=== PATIENT | male | born 1970 | race Caucasian/White ===

== ENCOUNTER 2018-06-02 11:37 | Emergency (ER) | payer OTHER ==
[~2018-06-02] VITALS: Ht 170.2 cm; Wt 85.3 kg
[2018-06-02 11:42] VITALS: Ht 170.2 cm; Wt 85.3 kg
[2018-06-02 12:04] LABS: BASOPHIL % 0.7 % (0-2); PLATELET COUNT 134 x10^3mcL (130-400); RED CELL DISTRIBUTION WIDTH 14.4 % (11.5-14.5)
[2018-06-02 12:27] LABS: CALCIUM 8.4 mg/dL (8.5-10.1); CARBON DIOXIDE 26.5 mmol/L (21-32); CHLORIDE SERUM 106 mmol/L (98-107); CREATININE SERUM 0.7 mg/dL (0.7-1.3); GFR1 > 60 mL/min; GLUCOSE SERUM 133 mg/dL (74-106); POTASSIUM SERUM 3.4 mmol/L (3.5-5.1); SODIUM SERUM 140 mmol/L (136-145)
[2018-06-02 12:32] LABS: ALKALINE PHOSPHATASE 66 U/L (46-116); ALT/SGPT 59 U/L (16-63); AST/SGOT 83 U/L (15-37); BILIRUBIN TOTAL 0.55 mg/dL (0.20-1.00); LIPASE 198 IU/L (73-393); TOTAL PROTEIN, SERUM 7.5 g/dL (6.4-8.2)
[2018-06-02 12:33] LABS: ALBUMIN 3.3 g/dL (3.4-5.0)
[2018-06-02 14:19] VITALS: BP 127/84
== END 2018-06-02 14:19 | disposition home or self-care (01) ==
LOC: ED 11:37
PROVIDERS: Emergency Medicine
DX: R53.1 Weakness (principal); F10.10 Alcohol abuse, uncomplicated; E87.6 Hypokalemia; R11.2 Nausea with vomiting, unspecified; R19.7 Diarrhea, unspecified
CPT/HCPCS: J2405; J3411; J3490; J7030

== ENCOUNTER 2019-07-12 21:12 | Emergency (ER) | payer OTHER ==
[~2019-07-12] VITALS: Ht 182.9 cm; Wt 79.8 kg
[2019-07-12 21:26] VITALS: Ht 182.9 cm; Wt 79.8 kg
[2019-07-13 02:27] VITALS: BP 120/75
== END 2019-07-13 02:27 | disposition home or self-care (01) ==
LOC: ED 21:12
DX: F10.129 Alcohol abuse with intoxication, unspecified (principal); F17.210 Nicotine dependence, cigarettes, uncomplicated
CPT/HCPCS: J7030

== ENCOUNTER 2020-01-01 10:04 | Emergency (ER) | payer OTHER ==
[~2020-01-01] VITALS: Ht 172.7 cm; Wt 65.8 kg
[2020-01-01 10:19] VITALS: Ht 172.7 cm; Wt 65.8 kg
[2020-01-01 11:01] LABS: microscopic required? NO
[2020-01-01 11:35] LABS: BASOPHIL % 0.9 % (0-2); PLATELET COUNT 138 x10^3mcL (130-400)
[2020-01-01 11:36] LABS: RED CELL DISTRIBUTION WIDTH 15.2 % (11.5-14.5)
[2020-01-01 11:44] LABS: CALCIUM 8.6 mg/dL (8.5-10.1); CARBON DIOXIDE 27.9 mmol/L (21-32); CHLORIDE SERUM 112 mmol/L (98-107); CREATININE SERUM 0.7 mg/dL (0.7-1.3); GFR1 > 60 mL/min; GLUCOSE SERUM 112 mg/dL (74-106); POTASSIUM SERUM 3.5 mmol/L (3.5-5.1); SODIUM SERUM 148 mmol/L (136-145)
[2020-01-01 11:55] LABS: ALKALINE PHOSPHATASE 60 U/L (46-116); ALT/SGPT 92 U/L (16-63); AST/SGOT 102 U/L (15-37); BILIRUBIN TOTAL 0.28 mg/dL (0.20-1.00); HDL CHOLESTEROL 55 mg/dL (40-60); LIPASE 384 IU/L (73-393); MAGNESIUM 2.2 mg/dL (1.8-2.4); T4(THYROXINE) 6.5 ug/dL (4.7-13.3); TOTAL PROTEIN, SERUM 7.6 g/dL (6.4-8.2)
[2020-01-01 12:00] LABS: UA SPECIFIC GRAVITY <=1.005 (1.005-1.035); urine erythrocyte NEGATIVE (NEGATIVE)
[2020-01-01 12:03] LABS: ALBUMIN 3.3 g/dL (3.4-5.0); CHOLESTEROL 218 mg/dL (<200)
[2020-01-01 12:06] LABS: AMPHETAMINE QUAL UR NONE DETECTED (See below)
[2020-01-01 16:52] VITALS: BP 109/75
== END 2020-01-01 16:52 | disposition home or self-care (01) ==
LOC: ED 10:04
PROVIDERS: Emergency Medicine
DX: G93.41 Metabolic encephalopathy (principal); F10.129 Alcohol abuse with intoxication, unspecified; R74.0 Nonspecific elevation of levels of transaminase and lactic acid dehydrogenase [LDH]; S80.211A Abrasion, right knee, initial encounter; X58.XXXA Exposure to other specified factors, initial encounter; Y93.89 Activity, other specified; Y92.89 Other specified places as the place of occurrence of the external cause; Y99.8 Other external cause status; Y90.8 Blood alcohol level of 240 mg/100 ml or more
CPT/HCPCS: 82962; 83880; 90715; G0480; J3411; J3475; J3490; Q0092

== ENCOUNTER 2020-05-08 13:08 | Emergency (ER) | payer OTHER ==
[~2020-05-08] VITALS: Ht 182.9 cm; Wt 81.6 kg
[2020-05-08 13:21] VITALS: Ht 182.9 cm; Wt 81.6 kg
[2020-05-08 14:11] LABS: BASOPHIL % 0.7 % (0-2)
[2020-05-08 14:31] LABS: PLATELET COUNT 67 x10^3mcL (130-400); RED CELL DISTRIBUTION WIDTH 15.5 % (11.5-14.5)
[2020-05-08 14:54] LABS: CALCIUM 8.7 mg/dL (8.5-10.1); CARBON DIOXIDE 23.3 mmol/L (21-32); CHLORIDE SERUM 99 mmol/L (98-107); CREATININE SERUM 0.8 mg/dL (0.7-1.3); GFR1 > 60 mL/min; GLUCOSE SERUM 105 mg/dL (74-106); POTASSIUM SERUM 3.3 mmol/L (3.5-5.1); SODIUM SERUM 136 mmol/L (136-145)
[2020-05-08 15:07] LABS: ALBUMIN 3.6 g/dL (3.4-5.0); ALKALINE PHOSPHATASE 70 U/L (46-116); ALT/SGPT 60 U/L (16-63); AST/SGOT 117 U/L (15-37); BILIRUBIN TOTAL 1.1 mg/dL (0.20-1.00); T4(THYROXINE) 6.5 ug/dL (4.7-13.3); TOTAL PROTEIN, SERUM 7.9 g/dL (6.4-8.2)
[2020-05-08 15:15] LABS: AMPHETAMINE QUAL UR NONE DETECTED (See below)
[2020-05-08 18:00] VITALS: BP 144/87
== END 2020-05-08 18:00 | disposition home or self-care (01) ==
LOC: ED 13:08
PROVIDERS: Emergency Medicine
DX: F10.239 Alcohol dependence with withdrawal, unspecified (principal); R56.9 Unspecified convulsions; F17.210 Nicotine dependence, cigarettes, uncomplicated; S00.512A Abrasion of oral cavity, initial encounter; X58.XXXA Exposure to other specified factors, initial encounter; Y93.89 Activity, other specified; Y92.89 Other specified places as the place of occurrence of the external cause; Y99.8 Other external cause status; Y90.3 Blood alcohol level of 60-79 mg/100 ml
CPT/HCPCS: 99406; G0480; J2060; J7030

== ENCOUNTER 2020-08-27 00:42 | Inpatient (IN) | payer OTHER ==
[~2020-08-27] VITALS: Ht 172.7 cm; Wt 78.0 kg
[2020-08-27] VITALS (16 sets, daily range): BP systolic 95–128; BP diastolic 61–96; Ht 172.7 cm; Wt 78.0 kg
[2020-08-27 01:49] LABS: CALCIUM 8.1 mg/dL (8.5-10.1); CHLORIDE SERUM 107 mmol/L (98-107); CREATININE SERUM 0.7 mg/dL (0.7-1.3); GFR1 > 60 mL/min; GLUCOSE SERUM 132 mg/dL (74-106); POTASSIUM SERUM 3.7 mmol/L (3.5-5.1); SODIUM SERUM 145 mmol/L (136-145)
[2020-08-27 01:51] LABS: BASOPHIL % 0.8 % (0-2)
[2020-08-27 01:52] LABS: PLATELET COUNT 89 x10^3mcL (130-400); RED CELL DISTRIBUTION WIDTH 15.5 % (11.5-14.5)
[2020-08-27 01:57] LABS: ALBUMIN 3.4 g/dL (3.4-5.0); ALKALINE PHOSPHATASE 88 U/L (46-116); ALT/SGPT 49 U/L (16-63); AST/SGOT 123 U/L (15-37); BILIRUBIN TOTAL 0.5 mg/dL (0.20-1.00)
[2020-08-27 02:46] LABS: AMPHETAMINE QUAL UR NONE DETECTED (See below)
[2020-08-28] VITALS (27 sets, daily range): BP systolic 95–153; BP diastolic 66–94
[2020-08-28 06:10] LABS: BASOPHIL % 0.4 % (0-2)
[2020-08-28 06:30] LABS: ALKALINE PHOSPHATASE 67 U/L (46-116); ALT/SGPT 47 U/L (16-63); AST/SGOT 110 U/L (15-37); CALCIUM 7.6 mg/dL (8.5-10.1); CARBON DIOXIDE 24.9 mmol/L (21-32); CHLORIDE SERUM 114 mmol/L (98-107); CREATININE SERUM 0.7 mg/dL (0.7-1.3); GFR1 > 60 mL/min; GLUCOSE SERUM 145 mg/dL (74-106); LIPASE 300 IU/L (73-393); MAGNESIUM 1.7 mg/dL (1.8-2.4); PHOSPHOROUS 3.1 mg/dL (2.5-4.9); SODIUM SERUM 146 mmol/L (136-145); TOTAL PROTEIN, SERUM 6.9 g/dL (6.4-8.2); TRIGLYCERIDES 117 mg/dL (<150)
[2020-08-28 06:32] LABS: PLATELET COUNT 52 x10^3mcL (130-400); RED CELL DISTRIBUTION WIDTH 15.4 % (11.5-14.5)
[2020-08-28 06:40] LABS: ALBUMIN 2.7 g/dL (3.4-5.0); CHOLESTEROL 236 mg/dL (<200); CHOLESTEROL/HDL RATIO 3.9; HDL CHOLESTEROL 61 mg/dL (40-60); POTASSIUM SERUM 2.9 mmol/L (3.5-5.1)
[2020-08-29] VITALS (18 sets, daily range): BP systolic 101–144; BP diastolic 63–93
[2020-08-29 05:55] LABS: BASOPHIL % 0.6 % (0-2)
[2020-08-29 06:08] LABS: RED CELL DISTRIBUTION WIDTH 15.7 % (11.5-14.5)
[2020-08-29 06:22] LABS: ALKALINE PHOSPHATASE 56 U/L (46-116); ALT/SGPT 40 U/L (16-63); AST/SGOT 77 U/L (15-37); CALCIUM 8.5 mg/dL (8.5-10.1); CHLORIDE SERUM 111 mmol/L (98-107); CREATININE SERUM 0.6 mg/dL (0.7-1.3); GFR1 > 60 mL/min; GLUCOSE SERUM 121 mg/dL (74-106); LIPASE 105 IU/L (73-393); MAGNESIUM 2.6 mg/dL (1.8-2.4); PHOSPHOROUS 2.2 mg/dL (2.5-4.9); PLATELET COUNT 32 x10^3mcL (130-400); POTASSIUM SERUM 3.6 mmol/L (3.5-5.1); SODIUM SERUM 147 mmol/L (136-145); TOTAL PROTEIN, SERUM 6.5 g/dL (6.4-8.2)
[2020-08-29 06:30] LABS: ALBUMIN 2.5 g/dL (3.4-5.0)
[2020-08-30] VITALS (14 sets, daily range): BP systolic 144–170; BP diastolic 66–104
[2020-08-30 05:44] LABS: BASOPHIL % 0.6 % (0-2)
[2020-08-30 05:53] LABS: PLATELET COUNT 42 x10^3mcL (130-400)
[2020-08-30 06:00] LABS: ALKALINE PHOSPHATASE 58 U/L (46-116); ALT/SGPT 42 U/L (16-63); AST/SGOT 77 U/L (15-37); CALCIUM 8.8 mg/dL (8.5-10.1); CARBON DIOXIDE 26.5 mmol/L (21-32); CHLORIDE SERUM 108 mmol/L (98-107); CREATININE SERUM 0.5 mg/dL (0.7-1.3); GFR1 > 60 mL/min; GLUCOSE SERUM 135 mg/dL (74-106); LIPASE 83 IU/L (73-393); PHOSPHOROUS 2.4 mg/dL (2.5-4.9); POTASSIUM SERUM 3.2 mmol/L (3.5-5.1); SODIUM SERUM 142 mmol/L (136-145); TOTAL PROTEIN, SERUM 6.8 g/dL (6.4-8.2)
[2020-08-30 06:04] LABS: ALBUMIN 2.6 g/dL (3.4-5.0)
[2020-08-31] VITALS (16 sets, daily range): BP systolic 119–156; BP diastolic 82–105
[2020-08-31 05:56] LABS: BASOPHIL % 0.5 % (0-2)
[2020-08-31 05:57] LABS: PLATELET COUNT 60 x10^3mcL (130-400); RED CELL DISTRIBUTION WIDTH 14.8 % (11.5-14.5)
[2020-08-31 06:03] LABS: ALKALINE PHOSPHATASE 60 U/L (46-116); ALT/SGPT 47 U/L (16-63); AST/SGOT 85 U/L (15-37); CALCIUM 8.7 mg/dL (8.5-10.1); CARBON DIOXIDE 26.5 mmol/L (21-32); CHLORIDE SERUM 104 mmol/L (98-107); CREATININE SERUM 0.5 mg/dL (0.7-1.3); GFR1 > 60 mL/min; GLUCOSE SERUM 135 mg/dL (74-106); LIPASE 81 IU/L (73-393); MAGNESIUM 1.7 mg/dL (1.8-2.4); PHOSPHOROUS 3.9 mg/dL (2.5-4.9); SODIUM SERUM 140 mmol/L (136-145); TOTAL PROTEIN, SERUM 6.9 g/dL (6.4-8.2)
[2020-08-31 06:05] LABS: ALBUMIN 2.5 g/dL (3.4-5.0)
[2020-08-31 06:11] LABS: POTASSIUM SERUM 2.8 mmol/L (3.5-5.1)
[2020-09-01] VITALS (11 sets, daily range): BP systolic 116–152; BP diastolic 78–100
[2020-09-01 05:43] LABS: BASOPHIL % 0.4 % (0-2); RED CELL DISTRIBUTION WIDTH 14.1 % (11.5-14.5)
[2020-09-01 05:44] LABS: PLATELET COUNT 73 x10^3mcL (130-400)
[2020-09-01 06:14] LABS: ALKALINE PHOSPHATASE 57 U/L (46-116); ALT/SGPT 42 U/L (16-63); AST/SGOT 73 U/L (15-37); BILIRUBIN TOTAL 1.4 mg/dL (0.20-1.00); CALCIUM 8.3 mg/dL (8.5-10.1); CARBON DIOXIDE 25.2 mmol/L (21-32); CHLORIDE SERUM 102 mmol/L (98-107); CREATININE SERUM 0.5 mg/dL (0.7-1.3); GFR1 > 60 mL/min; GLUCOSE SERUM 126 mg/dL (74-106); LIPASE 97 IU/L (73-393); MAGNESIUM 1.7 mg/dL (1.8-2.4); PHOSPHOROUS 4.5 mg/dL (2.5-4.9); SODIUM SERUM 135 mmol/L (136-145); TOTAL PROTEIN, SERUM 6.7 g/dL (6.4-8.2)
[2020-09-01 06:16] LABS: ALBUMIN 2.5 g/dL (3.4-5.0)
[2020-09-01 06:19] LABS: POTASSIUM SERUM 2.4 mmol/L (3.5-5.1)
[2020-09-02 00:07] VITALS: BP 177/104
[2020-09-02 03:25] VITALS: BP 160/99
[2020-09-02 04:51] LABS: PLATELET COUNT 88 x10^3mcL (130-400); RED CELL DISTRIBUTION WIDTH 14.5 % (11.5-14.5)
[2020-09-02 05:00] LABS: ALKALINE PHOSPHATASE 60 U/L (46-116); ALT/SGPT 59 U/L (16-63); AST/SGOT 53 U/L (15-37); BILIRUBIN TOTAL 1.22 mg/dL (0.20-1.00); CALCIUM 9.2 mg/dL (8.5-10.1); CARBON DIOXIDE 25.7 mmol/L (21-32); CHLORIDE SERUM 105 mmol/L (98-107); CREATININE SERUM 0.5 mg/dL (0.7-1.3); GFR1 > 60 mL/min; GLUCOSE SERUM 116 mg/dL (74-106); POTASSIUM SERUM 3.1 mmol/L (3.5-5.1); SODIUM SERUM 137 mmol/L (136-145); TOTAL PROTEIN, SERUM 7.1 g/dL (6.4-8.2)
[2020-09-02 05:01] LABS: ALBUMIN 2.5 g/dL (3.4-5.0)
[2020-09-02 12:00] VITALS: BP 134/106
[2020-09-02 21:00] VITALS: BP 91/57
[2020-09-03 06:48] VITALS: BP 150/102
[2020-09-03 07:21] LABS: CALCIUM 9.4 mg/dL (8.5-10.1); CARBON DIOXIDE 27.9 mmol/L (21-32); CHLORIDE SERUM 101 mmol/L (98-107); CREATININE SERUM 0.8 mg/dL (0.7-1.3); GFR1 > 60 mL/min; GLUCOSE SERUM 88 mg/dL (74-106); SODIUM SERUM 136 mmol/L (136-145)
[2020-09-03 07:35] LABS: BILIRUBIN DIRECT 0.67 mg/dL (0.0-0.2); BILIRUBIN TOTAL 1.24 mg/dL (0.20-1.00); MAGNESIUM 1.9 mg/dL (1.8-2.4); TOTAL PROTEIN, SERUM 7.9 g/dL (6.4-8.2)
[2020-09-03 07:49] LABS: BASOPHIL % 0.7 % (0-2); PLATELET COUNT 148 x10^3mcL (130-400)
[2020-09-03 07:51] LABS: RED CELL DISTRIBUTION WIDTH 14.6 % (11.5-14.5)
[2020-09-03 07:54] LABS: ALBUMIN 2.9 g/dL (3.4-5.0)
[2020-09-03 08:30] VITALS: BP 123/89
[2020-09-03 14:17] VITALS: BP 141/92
[2020-09-03 17:48] VITALS: BP 125/95
[2020-09-03 19:24] VITALS: BP 129/90
[2020-09-04 05:35] VITALS: BP 140/93
[2020-09-04 06:39] LABS: RED CELL DISTRIBUTION WIDTH 14.5 % (11.5-14.5)
[2020-09-04 06:52] LABS: CARBON DIOXIDE 30.1 mmol/L (21-32); CHLORIDE SERUM 98 mmol/L (98-107); CREATININE SERUM 0.7 mg/dL (0.7-1.3); GFR1 > 60 mL/min; GLUCOSE SERUM 78 mg/dL (74-106); POTASSIUM SERUM 3.1 mmol/L (3.5-5.1); SODIUM SERUM 133 mmol/L (136-145)
[2020-09-04 06:53] LABS: BASOPHIL % 0.9 % (0-2); PLATELET COUNT 160 x10^3mcL (130-400)
[2020-09-04 07:07] VITALS: BP 130/89
[2020-09-04 11:36] VITALS: BP 128/88
[2020-09-04 16:10] VITALS: BP 137/93
[2020-09-04] MEDS ORDERED: TYL325 PO (16:12)
[2020-09-04] MEDS ORDERED: LEVAQUIN750 MG PO (16:14)
[2020-09-04] MEDS ORDERED: LAC30L NG (16:14)
[2020-09-04] MEDS ORDERED: KEPPRA500 MG PO (16:15)
[2020-09-04 19:49] VITALS: BP 126/76
[2020-09-05 05:18] VITALS: BP 124/81
[2020-09-05 06:36] LABS: PLATELET COUNT 187 x10^3mcL (130-400); RED CELL DISTRIBUTION WIDTH 14.3 % (11.5-14.5)
[2020-09-05 06:59] LABS: CALCIUM 8.9 mg/dL (8.5-10.1); CARBON DIOXIDE 31.7 mmol/L (21-32); CHLORIDE SERUM 99 mmol/L (98-107); CREATININE SERUM 0.9 mg/dL (0.7-1.3); GFR1 > 60 mL/min; GLUCOSE SERUM 79 mg/dL (74-106); POTASSIUM SERUM 3.8 mmol/L (3.5-5.1); SODIUM SERUM 133 mmol/L (136-145)
[2020-09-05 08:23] VITALS: BP 108/73
[2020-09-05 10:51] LABS: BAND NEUTROPHIL 1 % (0-10); MONOCYTE 9 % (0-7); SEGMENTED NEUTROPHILS 62 % (37-75); rbc morphology (normal/abnorm) NORMAL (NORMAL)
[2020-09-05] MEDS ORDERED: LIB25 PO (11:40)
[2020-09-05] MEDS ORDERED: ATIVAN1 MG PO (11:40)
[2020-09-05 13:01] VITALS: BP 128/87
[2020-09-05 15:55] VITALS: BP 124/86
[2020-09-05 21:18] VITALS: BP 128/85
[2020-09-06 05:40] VITALS: BP 125/78
[2020-09-06 06:48] LABS: BASOPHIL % 1.1 % (0-2); PLATELET COUNT 204 x10^3mcL (130-400); RED CELL DISTRIBUTION WIDTH 14.2 % (11.5-14.5)
[2020-09-06 06:50] LABS: CALCIUM 9.1 mg/dL (8.5-10.1); CARBON DIOXIDE 25.9 mmol/L (21-32); CHLORIDE SERUM 100 mmol/L (98-107); CREATININE SERUM 0.7 mg/dL (0.7-1.3); GFR1 > 60 mL/min; GLUCOSE SERUM 81 mg/dL (74-106); POTASSIUM SERUM 3.2 mmol/L (3.5-5.1); SODIUM SERUM 134 mmol/L (136-145)
[2020-09-06 09:09] VITALS: BP 133/92
[2020-09-06 15:52] VITALS: BP 133/92
[2020-09-06 16:20] VITALS: BP 112/59
== END 2020-09-06 17:28 | DRG 207 ==
LOC: ED 00:42 → IC 02:33 → DU 09-02 20:38
PROVIDERS: Internal Medicine Pulmonary Disease; Student in an Organized Health Care Education/Training Program; ADMIT Hospitalist; ATTEND Hospitalist
PROC: 0BH17EZ Insertion of Endotracheal Airway into Trachea, Via Natural or Artificial Opening (ICD-10-PCS; 2020-08-27)
PROC: 0B918ZZ Drainage of Trachea, Via Natural or Artificial Opening Endoscopic (ICD-10-PCS; 2020-08-27)
PROC: 5A1955Z Respiratory Ventilation, Greater than 96 Consecutive Hours (ICD-10-PCS; principal; 2020-08-27 11:15)
PROC: 0DB68ZX Excision of Stomach, Via Natural or Artificial Opening Endoscopic, Diagnostic (ICD-10-PCS; 2020-08-30)
DX: J96.01 Acute respiratory failure with hypoxia (principal); J18.9 Pneumonia, unspecified organism; G92 Toxic encephalopathy; K85.90 Acute pancreatitis without necrosis or infection, unspecified; K56.7 Ileus, unspecified; F10.129 Alcohol abuse with intoxication, unspecified; Y90.4 Blood alcohol level of 80-99 mg/100 ml; Z20.828 Contact with and (suspected) exposure to other viral communicable diseases; D69.6 Thrombocytopenia, unspecified; J39.8 Other specified diseases of upper respiratory tract; R31.9 Hematuria, unspecified; J43.9 Emphysema, unspecified
CPT/HCPCS: 31645; 36600; 43235; 82962; 97112-GP; 97116-GP; 97530-GP; A4628; C9113; G0378; G0480; J0171; J0330; J1200; J1610; J1650; J2001; J2060; J2250; J2270; J2310; J2405; J2543; J2704; J2765; J3010; J3475; J3480; J3490; J7030; J7042; Q0092; Q9967